=== PATIENT | male | born 1980 | race Caucasian/White ===

== ENCOUNTER 2024-10-03 13:20 | Outpatient (CLI) | payer OTHER | END 2024-10-03 13:21 | disposition home or self-care (01) | LOC: CSHWCC 13:20 | PROVIDERS: ATTEND Nurse Practitioner Family | DX: L89.154 Pressure ulcer of sacral region, stage 4 (principal); T81.31XD Disruption of external operation (surgical) wound, not elsewhere classified, subsequent encounter; Z72.0 Tobacco use | CPT/HCPCS: 11042; 11045 ==

== ENCOUNTER 2024-10-10 13:57 | Outpatient (CLI) | payer OTHER | END 2024-10-10 13:58 | disposition home or self-care (01) | LOC: CSHWCC 13:57 | PROVIDERS: ATTEND Nurse Practitioner Family | DX: L89.154 Pressure ulcer of sacral region, stage 4 (principal); T81.31XA Disruption of external operation (surgical) wound, not elsewhere classified, initial encounter; Z72.0 Tobacco use | CPT/HCPCS: 11042 ==

== ENCOUNTER 2024-10-17 15:24 | Outpatient (CLI) | payer OTHER | END 2024-10-17 15:25 | disposition home or self-care (01) | LOC: CSHWCC 15:24 | PROVIDERS: ATTEND Nurse Practitioner Family | DX: L89.154 Pressure ulcer of sacral region, stage 4 (principal); Z72.0 Tobacco use | CPT/HCPCS: 11042; 99212; G0463 ==

== ENCOUNTER 2024-10-31 13:20 | Outpatient (CLI) | payer OTHER | END 2024-10-31 13:21 | disposition home or self-care (01) | LOC: CSHWCC 13:20 | PROVIDERS: ATTEND Nurse Practitioner Family | DX: L89.154 Pressure ulcer of sacral region, stage 4 (principal); Z72.0 Tobacco use | CPT/HCPCS: 11042 ==

== ENCOUNTER 2024-11-07 12:42 | Outpatient (CLI) | payer OTHER | END 2024-11-07 12:43 | disposition home or self-care (01) | LOC: CSHWCC 12:42 | PROVIDERS: ATTEND Nurse Practitioner Family | DX: L89.154 Pressure ulcer of sacral region, stage 4 (principal); Z72.0 Tobacco use | CPT/HCPCS: 11042 ==

== ENCOUNTER 2024-11-28 15:37 | Outpatient (CLI) | payer OTHER | END 2024-11-28 15:38 | disposition home or self-care (01) | LOC: CSHWCC 15:37 | PROVIDERS: ATTEND Nurse Practitioner Family | DX: L89.154 Pressure ulcer of sacral region, stage 4 (principal); Z72.0 Tobacco use | CPT/HCPCS: 99213; G0463 ==